=== PATIENT | male | born 1990 | race Two or more races ===

== ENCOUNTER 2022-03-23 20:03 | Emergency (ER) | payer OTHER ==
[~2022-03-23] VITALS: Ht 167.6 cm; Wt 77.1 kg
[2022-03-23] MEDS ORDERED: CIPRO250 MG PO (23:18)
[2022-03-23] MEDS ORDERED: KETO10TA2 PO (23:18)
[2022-03-23] MEDS ORDERED: TAMS0.4C PO (23:18)
== END 2022-03-23 23:54 | disposition home or self-care (01) ==
LOC: ER 20:03
DX: N50.811 Right testicular pain (principal); R10.31 Right lower quadrant pain; N20.0 Calculus of kidney